=== PATIENT | female | born 1980 | race Caucasian/White ===

== ENCOUNTER → 2018-03-30 | Outpatient (CLI) | payer MEDICARE, MEDICAID ==
[~2018-03-30] MED LIST: LAMO200T46 PO; LAMO5TB.2 PO
--- NOTE | 2018-03-30 15:50 | RADIOLOGY IMAGING REPORT ---
FACILITY: [facility] [place] PATIENT NAME: Soumya Hopper : 1980 MR: [id number] V: [id number] EXAM DATE: ORDERING PHYSICIAN: JUANCHO ATKINS TECHNOLOGIST: Location: [facility] Patient: Soumya Hopper : 1980 Visit/Account:[id number] Date of Sevice: 03/30/2018 EXAMINATION: CT head without IV contrast HISTORY: Headache. COMPARISON: None. TECHNIQUE: Contiguous axial images were obtained from the skull base to the vertex without intraven ous contrast. Sagittal and coronal reformatted images are also submitted. One of the following dose optimization techniques was utilized in the performance of this exam: Autom ated exposure control; adjustment of the mA and/or kV according to the patient's size; or use of an i terative reconstruction technique. Specific details can be referenced in the facility's radiology C T exam operational policy. FINDINGS: Brain volume: Normal. Ventricles: Normal. Acute ischemic changes: None. Hemorrhage: No acute intracranial hemorrhage. Masses/edema: None. Wray-white: Negative. White matter: Normal. Vessels: Negative. Extra-axial: Negative. Calvarium/scalp: Negative. Skull base/visualized face: Negative. Visualized sinuses/orbits: Negative. IMPRESSION: No acute hemorrhage or intracranial mass lesion. No CT evidence of acute infarct. Report Dictated By: Susanne Simon MD at 03/30/2018 3:43 PM Report E-Signed By: Susanne Simon MD at 03/30/2018 3:46 PM WSN:[id number]
== END ==
LOC: CT 15:16
PROVIDERS: ATTEND Nurse Practitioner Family
DX: R51 Headache (principal)
CPT/HCPCS: 70450

== ENCOUNTER → 2018-03-30 | Outpatient (REF) | payer MEDICARE, MEDICAID ==
[2018-03-30 16:35] LABS: PLATELET COUNT, AUTOMATED 281 K/uL (150-450)
== END ==
PROVIDERS: ATTEND Physical Medicine & Rehabilitation
DX: R51 Headache (principal); R53.83 Other fatigue; R53.81 Other malaise
CPT/HCPCS: 82040; 82247; 82310; 82374; 82435; 82565; 82947; 84075; 84132; 84155; 84295; 84450; 84460; 84520; 85025